=== PATIENT | female | born 1995 | race Caucasian/White ===

== ENCOUNTER → 2023-07-25 08:18 | Outpatient (REF) | payer BC, SELFPAY | LOC: WDC 08:18 | PROVIDERS: ATTENDING PHYSICIAN Obstetrics & Gynecology; FAMILY PHYSICIAN Nurse Practitioner | DX: N63.20 Unspecified lump in the left breast, unspecified quadrant (principal); N63.23 Unspecified lump in the left breast, lower outer quadrant | CPT/HCPCS: 76642 ==

== ENCOUNTER → 2024-07-16 16:11 | Outpatient (REF) | payer BC, SELFPAY ==
[2024-07-20 02:09] LABS: Chlamydia trachomatis,ThinPrep Negative (Negative); Neisseria gonorrhoeae,ThinPrep Negative (Negative); Specimen Source Cervical
== END ==
LOC: CPAP 16:11
PROVIDERS: ATTENDING PHYSICIAN Nurse Practitioner Family
DX: Z34.91 Encounter for supervision of normal pregnancy, unspecified, first trimester (principal)
CPT/HCPCS: 87491; 87591

== ENCOUNTER → 2024-07-23 13:08 | Outpatient (REF) | payer BC, SELFPAY ==
[2024-07-23 14:10] LABS: % Basophils 0.4 % (0-2); % Eosinophils 0.6 % (0-6); % Immature Granulocytes 0.3 % (0-0.5); % Lymphocytes 20.7 % (20.5-51.1); % Monocytes 7.3 % (1.7-9.3); % Neutrophils 70.7 % (42.2-75.2); Absolute Eosinophils 0.1 10^3/uL (0-0.7); Absolute Lymphocytes 1.9 10^3/uL (1.2-3.4); Absolute Monocytes 0.7 10^3/uL (0.1-0.6); Absolute Neutrophils 6.3 10^3/uL (1.4-6.5); Hematocrit 40.2 % (37.0-47.0); Hemoglobin 13.4 g/dL (12.0-16.0); Mean Corp Hgb Conc. 33.3 g/dL (33.0-37.0); Mean Corpuscular Hgb 31.2 pg (27.0-31.0); Mean Corpuscular Volume 93.5 fL (81.0-99.0); Mean Platelet Volume 10.1 fL (7.4-10.4); Nucleated Red Blood Cells % 0 %; Platelet Count 325 10^3/uL (130-400); Red Cell Dist. Width 12.4 % (11.5-14.5)
[2024-07-23 14:26] LABS: Urine Albumin Negative (Neg - Trace); Urine Bilirubin Negative (Negative); Urine Character Clear (Clear); Urine Color Yellow; Urine Glucose Negative (Negative); Urine Ketone Negative (Negative); Urine Leukocyte Negative (Negative); Urine Nitrite Negative (Negative); Urine Occult Blood Negative (Negative); Urine Specific Gravity 1.005 (<1.030); Urine Urobilinogen Negative (Neg - 1+)
[2024-07-23 18:12] LABS: Hepatitis B Surface Antigen Negative (Negative)
[2024-07-23 18:30] LABS: Hepatitis B Core Ab, Total Negative (Negative); Hepatitis B Surface Antibody Negative; Hepatitis C Antibody Negative (Negative)
[2024-07-24 10:50] LABS: Syphilis/T. pallidum Ab Reflex Negative (Negative)
[2024-07-24 12:18] LABS: HIV Combo Negative (Negative)
[2024-07-26 11:38] LABS: HDL Cholesterol 49 mg/dl; LDL Cholesterol, Calculated 112 mg/dl; Total Cholesterol 189 mg/dl (50-199); Triglyceride 141 mg/dl (10-149); Very Low Density Lipoprotein 28 mg/dl (0-30)
== END ==
LOC: REG 13:08
PROVIDERS: ATTENDING PHYSICIAN Nurse Practitioner Family; FAMILY PHYSICIAN Nurse Practitioner
DX: Z32.01 Encounter for pregnancy test, result positive (principal); Z11.3 Encounter for screening for infections with a predominantly sexual mode of transmission; Z34.90 Encounter for supervision of normal pregnancy, unspecified, unspecified trimester; Z31.430 Encounter of female for testing for genetic disease carrier status for procreative management
CPT/HCPCS: 36415; 80061; 81003; 81220; 81243; 83036; 84702; 85025; 86704; 86706; 86780; 86803; 86850; 86900; 86901; 87086; 87340; 87389

== ENCOUNTER → 2024-08-06 11:13 | Outpatient (REF) | payer BC, SELFPAY | LOC: RAD 11:13 | PROVIDERS: ATTENDING PHYSICIAN Obstetrics & Gynecology; FAMILY PHYSICIAN Nurse Practitioner | DX: O26.859 Spotting complicating pregnancy, unspecified trimester (principal) | CPT/HCPCS: 76801 ==

== ENCOUNTER → 2024-08-28 13:12 | Outpatient (REF) | payer BC, SELFPAY | LOC: PNTC 13:12 | PROVIDERS: ATTENDING PHYSICIAN Obstetrics & Gynecology | DX: Z36.0 Encounter for antenatal screening for chromosomal anomalies (principal); Z36.82 Encounter for antenatal screening for nuchal translucency | CPT/HCPCS: 36415; 76801; 76813; 81420 ==

== ENCOUNTER → 2024-09-20 14:49 | Outpatient (REF) | payer BC, SELFPAY | LOC: PNTC 14:49 | PROVIDERS: ATTENDING PHYSICIAN Obstetrics & Gynecology | DX: O99.210 Obesity complicating pregnancy, unspecified trimester (principal) | CPT/HCPCS: 76805 ==

== ENCOUNTER → 2024-10-17 12:24 | Outpatient (REF) | payer BC, SELFPAY ==
[2024-10-20 18:59] LABS: AFP Multiple of Median (MoM) 1.05; Dating LMP CONF by US; Family Neural Tube Defect Hx No; Insulin Req Maternal Diabetes No; Maternal Age at Delivery 30.4 yr; Maternal Race Nonblack; Maternal Screen Interpretation Screen Neg; Maternal Weight 194.0 lbs.; Number of Fetuses Singleton; Patient's AFP Concentration 51 ng/mL; Smoking No
== END ==
LOC: REG 12:24
PROVIDERS: ATTENDING PHYSICIAN Obstetrics & Gynecology
DX: Z34.02 Encounter for supervision of normal first pregnancy, second trimester (principal)
CPT/HCPCS: 36415; 82105

== ENCOUNTER → 2024-10-30 14:41 | Outpatient (REF) | payer BC, SELFPAY | LOC: PNTC 14:41 | PROVIDERS: ATTENDING PHYSICIAN Obstetrics & Gynecology | DX: O99.210 Obesity complicating pregnancy, unspecified trimester (principal) | CPT/HCPCS: 76811; 76817 ==

== ENCOUNTER → 2024-12-03 09:22 | Outpatient (REF) | payer BC, SELFPAY ==
[2024-12-03 11:46] LABS: Hematocrit 35.5 % (37.0-47.0); Hemoglobin 11.9 g/dL (12.0-16.0); Mean Corp Hgb Conc. 33.5 g/dL (33.0-37.0); Mean Corpuscular Volume 95.4 fL (81.0-99.0); Nucleated Red Blood Cells % 0 %; Platelet Count 262 10^3/uL (130-400); Red Cell Dist. Width 13.5 % (11.5-14.5)
[2024-12-03 12:13] LABS: 1 Hour after 50gm 139 mg/dl
[2024-12-04 12:56] LABS: Syphilis/T. pallidum Ab Reflex Negative (Negative)
== END ==
LOC: REG 09:22
PROVIDERS: ATTENDING PHYSICIAN Obstetrics & Gynecology; FAMILY PHYSICIAN Nurse Practitioner
DX: Z34.93 Encounter for supervision of normal pregnancy, unspecified, third trimester (principal)
CPT/HCPCS: 36415; 82950; 85025; 86780

== ENCOUNTER → 2024-12-07 08:36 | Outpatient (REF) | payer BC, SELFPAY ==
[2024-12-07 09:27] LABS: Glucose for Tolerance Test 90 mg/dl
[2024-12-07 11:23] LABS: Glucose for Tolerance Test 153 mg/dl
[2024-12-07 12:24] LABS: Glucose for Tolerance Test 105 mg/dl
[2024-12-07 13:43] LABS: Glucose for Tolerance Test 67 mg/dl
== END ==
LOC: REG 08:36
PROVIDERS: ATTENDING PHYSICIAN Obstetrics & Gynecology; FAMILY PHYSICIAN Nurse Practitioner
DX: Z34.90 Encounter for supervision of normal pregnancy, unspecified, unspecified trimester (principal)
CPT/HCPCS: 36415; 82951

== ENCOUNTER → 2024-12-13 14:31 | Outpatient (REF) | payer BC, SELFPAY | LOC: PNTC 14:31 | PROVIDERS: ATTENDING PHYSICIAN Obstetrics & Gynecology | DX: Z34.90 Encounter for supervision of normal pregnancy, unspecified, unspecified trimester (principal) | CPT/HCPCS: 76816 ==

== ENCOUNTER → 2025-01-01 14:03 | Outpatient (REF) | payer BC, SELFPAY ==
[2025-01-01 15:51] LABS: Hematocrit 32.6 % (37.0-47.0); Hemoglobin 10.9 g/dL (12.0-16.0); Mean Corp Hgb Conc. 33.4 g/dL (33.0-37.0); Mean Corpuscular Volume 94.8 fL (81.0-99.0); Nucleated Red Blood Cells % 0 %; Platelet Count 235 10^3/uL (130-400); Red Cell Dist. Width 13.2 % (11.5-14.5)
[2025-01-01 16:24] LABS: ALT (SGPT) 15 U/L (0-35); AST (SGOT) 19 U/L (14-36); Albumin 3.3 g/dl (3.5-5.0); Alkaline Phosphatase 81 U/L (38-126); Blood Urea Nitrogen 6 mg/dl (7-17); Calcium 8.9 mg/dl (8.4-10.2); Carbon Dioxide 24 mmol/L (22-30); Chloride 109 mmol/L (98-107); Glucose 92 mg/dl (70-99); Potassium 4.2 mmol/L (3.5-5.1); Sodium 135 mmol/L (135-145); Total Protein 6.1 g/dl (6.3-8.2); eGFR > 60.00
== END ==
LOC: PNTC 14:03
PROVIDERS: ATTENDING PHYSICIAN Obstetrics & Gynecology
DX: O36.8130 Decreased fetal movements, third trimester, not applicable or unspecified (principal)
CPT/HCPCS: 36415; 59025; 76815; 80053; 82570; 84156; 85025

== ENCOUNTER → 2025-01-08 09:48 | Outpatient (REF) | payer BC, SELFPAY ==
[2025-01-08 10:35] LABS: Hematocrit 33.4 % (37.0-47.0); Hemoglobin 11.2 g/dL (12.0-16.0); Mean Corp Hgb Conc. 33.5 g/dL (33.0-37.0); Mean Corpuscular Volume 94.1 fL (81.0-99.0); Platelet Count 238 10^3/uL (130-400); Red Cell Dist. Width 13.2 % (11.5-14.5)
[2025-01-08 10:43] LABS: Height Cm 165.10 CM
[2025-01-08 10:44] LABS: Weight Kg 93.4 KG.
[2025-01-08 11:09] LABS: ALT (SGPT) 16 U/L (0-35); AST (SGOT) 20 U/L (14-36); Albumin 3.2 g/dl (3.5-5.0); Alkaline Phosphatase 82 U/L (38-126); Blood Urea Nitrogen 4 mg/dl (7-17); Calcium 8.8 mg/dl (8.4-10.2); Carbon Dioxide 23 mmol/L (22-30); Chloride 108 mmol/L (98-107); Glucose 85 mg/dl (70-99); Potassium 4.2 mmol/L (3.5-5.1); Sodium 134 mmol/L (135-145); Total Protein 6.2 g/dl (6.3-8.2); eGFR > 60.00
[2025-01-08 11:09] LABS: 24 Hour Urine Total Volume 1150 ml
[2025-01-08 11:21] LABS: Creat Clear Result 133.3 ml/min (61-166)
== END ==
LOC: REG 09:48
PROVIDERS: ATTENDING PHYSICIAN Obstetrics & Gynecology; FAMILY PHYSICIAN Nurse Practitioner
DX: Z34.82 Encounter for supervision of other normal pregnancy, second trimester (principal)
CPT/HCPCS: 36415; 80053; 81050; 82575; 84156; 85027

== ENCOUNTER → 2025-01-17 15:21 | Outpatient (REF) | payer BC, SELFPAY ==
[2025-01-17 16:28] LABS: Hematocrit 32.0 % (37.0-47.0); Hemoglobin 11.0 g/dL (12.0-16.0); Mean Corp Hgb Conc. 34.4 g/dL (33.0-37.0); Mean Corpuscular Volume 93.6 fL (81.0-99.0); Nucleated Red Blood Cells % 0 %; Platelet Count 243 10^3/uL (130-400); Red Cell Dist. Width 13.2 % (11.5-14.5)
[2025-01-17 16:29] LABS: ALT (SGPT) 15 U/L (0-35); AST (SGOT) 21 U/L (14-36); Albumin 3.2 g/dl (3.5-5.0); Alkaline Phosphatase 95 U/L (38-126); Blood Urea Nitrogen 9 mg/dl (7-17); Calcium 8.5 mg/dl (8.4-10.2); Carbon Dioxide 23 mmol/L (22-30); Chloride 106 mmol/L (98-107); Glucose 96 mg/dl (70-99); Potassium 3.9 mmol/L (3.5-5.1); Sodium 133 mmol/L (135-145); Total Protein 6.2 g/dl (6.3-8.2); eGFR > 60.00
== END ==
LOC: PNTC 15:21
PROVIDERS: Student in an Organized Health Care Education/Training Program; ATTENDING PHYSICIAN Obstetrics & Gynecology
DX: Z34.90 Encounter for supervision of normal pregnancy, unspecified, unspecified trimester (principal)
CPT/HCPCS: 36415; 59025; 80053; 82570; 84156; 85025

== ENCOUNTER 2025-01-22 15:02 | Observation (INO) | payer BC, SELFPAY ==
[2025-01-22 15:18] VITALS: BP 137/83; BMI 36.3
[2025-01-22 16:20] LABS: Hematocrit 34.6 % (37.0-47.0); Hemoglobin 11.6 g/dL (12.0-16.0); Mean Corp Hgb Conc. 33.5 g/dL (33.0-37.0); Mean Corpuscular Volume 94.0 fL (81.0-99.0); Nucleated Red Blood Cells % 0 %; Platelet Count 223 10^3/uL (130-400); Red Cell Dist. Width 13.5 % (11.5-14.5)
[2025-01-22 16:30] LABS: Urine Character Clear (Clear)
[2025-01-22] MEDS: LR 1000 IV (16:37)
[2025-01-22 16:47] LABS: ALT (SGPT) 15 U/L (0-35); AST (SGOT) 24 U/L (14-36); Albumin 3.8 g/dl (3.5-5.0); Alkaline Phosphatase 106 U/L (38-126); Blood Urea Nitrogen 8 mg/dl (7-17); Calcium 9.4 mg/dl (8.4-10.2); Carbon Dioxide 22 mmol/L (22-30); Chloride 103 mmol/L (98-107); Estimated Creatinine Clearance > 125 ml/min; Glucose 76 mg/dl (70-99); Potassium 3.8 mmol/L (3.5-5.1); Sodium 133 mmol/L (135-145); Total Protein 7.0 g/dl (6.3-8.2); eGFR > 60.00
[2025-01-22] MEDS: CELESTONE SOLUSPAN 2 MG IM (18:59)
[2025-01-22] MEDS: ZYRTEC 10 MG PO (22:02)
--- NOTE | 2025-01-23 02:52 | DOWNTIME ---
There was a [employer] Downtime on 01/23/2025 from 0100 to 01/23/2025 at 0215. Downtime documentation of patient's care, including medication administrations, has been reconciled in the electronic record per guidelines. Refer to the
patient's paper chart under the miscellaneous tab to see printed paper medication records and downtime forms.
[2025-01-23] MEDS: PRENATAL PLUS 1 TABLET PO (07:58)
== END 2025-01-23 10:46 | disposition home or self-care (01) ==
LOC: LDRP 15:02
PROVIDERS: ADMITTING PHYSICIAN Obstetrics & Gynecology
DX: O14.03 Mild to moderate pre-eclampsia, third trimester (principal); Z3A.33 33 weeks gestation of pregnancy
CPT/HCPCS: 59025; 80053; 81003; 82570; 82731; 84156; 85025; 86762; 86850; 86900; 86901; 87070; G0378

== ENCOUNTER 2025-01-23 20:10 | Observation (INO) | payer BC, SELFPAY ==
[2025-01-23 20:16] VITALS: BP 124/76; BMI 36.3
[2025-01-23] MEDS: CELESTONE SOLUSPAN 2 MG IM (21:17)
== END 2025-01-23 21:23 | disposition home or self-care (01) ==
LOC: LDRP 20:10
PROVIDERS: ADMITTING PHYSICIAN Obstetrics & Gynecology; FAMILY PHYSICIAN Student in an Organized Health Care Education/Training Program
DX: O14.03 Mild to moderate pre-eclampsia, third trimester (principal); Z3A.33 33 weeks gestation of pregnancy
CPT/HCPCS: 59025; G0378

== ENCOUNTER → 2025-01-24 07:13 | Outpatient (REF) | payer BC, SELFPAY | LOC: PNTC 07:13 | PROVIDERS: ATTENDING PHYSICIAN Obstetrics & Gynecology | DX: O09.529 Supervision of elderly multigravida, unspecified trimester (principal); O13.9 Gestational [pregnancy-induced] hypertension without significant proteinuria, unspecified trimester | CPT/HCPCS: 59025; 76815 ==

== ENCOUNTER → 2025-01-30 09:40 | Outpatient (REF) | payer BC, SELFPAY ==
[2025-01-30 10:38] LABS: Hematocrit 37.0 % (37.0-47.0); Hemoglobin 11.9 g/dL (12.0-16.0); Mean Corp Hgb Conc. 32.2 g/dL (33.0-37.0); Mean Corpuscular Volume 93.9 fL (81.0-99.0); Nucleated Red Blood Cells % 0 %; Platelet Count 260 10^3/uL (130-400); Red Cell Dist. Width 13.5 % (11.5-14.5)
[2025-01-30 10:57] LABS: ALT (SGPT) 15 U/L (0-35); AST (SGOT) 19 U/L (14-36); Albumin 3.5 g/dl (3.5-5.0); Alkaline Phosphatase 104 U/L (38-126); Blood Urea Nitrogen 10 mg/dl (7-17); Calcium 9.5 mg/dl (8.4-10.2); Carbon Dioxide 25 mmol/L (22-30); Chloride 102 mmol/L (98-107); Glucose 113 mg/dl (70-99); Potassium 4.6 mmol/L (3.5-5.1); Sodium 132 mmol/L (135-145); Total Protein 6.7 g/dl (6.3-8.2); Uric Acid 5.0 mg/dl (2.5-6.2); eGFR > 60.00
[2025-01-30 11:14] LABS: Urine Character Slightly Cloudy (Clear)
[2025-01-30 12:18] LABS: Urine Red Blood Cell 0-2 /HPF (0-2); Urine Squamous Cell >30 /LPF (Few)
== END ==
LOC: REG 09:40
PROVIDERS: ATTENDING PHYSICIAN Obstetrics & Gynecology; FAMILY PHYSICIAN Nurse Practitioner
DX: Z34.03 Encounter for supervision of normal first pregnancy, third trimester (principal)
CPT/HCPCS: 36415; 80053; 81003; 81015; 82570; 84156; 84550; 85025

== ENCOUNTER → 2025-01-31 08:24 | Outpatient (REF) | payer BC, SELFPAY | LOC: PNTC 08:24 | PROVIDERS: ATTENDING PHYSICIAN Obstetrics & Gynecology | DX: O99.210 Obesity complicating pregnancy, unspecified trimester (principal); O13.9 Gestational [pregnancy-induced] hypertension without significant proteinuria, unspecified trimester | CPT/HCPCS: 59025; 76818 ==

== ENCOUNTER → 2025-02-05 07:08 | Outpatient (REF) | payer BC, SELFPAY ==
[2025-02-05 08:39] LABS: Hematocrit 34.5 % (37.0-47.0); Hemoglobin 11.7 g/dL (12.0-16.0); Mean Corp Hgb Conc. 33.9 g/dL (33.0-37.0); Mean Corpuscular Volume 94.5 fL (81.0-99.0); Nucleated Red Blood Cells % 0 %; Platelet Count 205 10^3/uL (130-400); Red Cell Dist. Width 13.4 % (11.5-14.5)
[2025-02-05 08:44] LABS: Urine Character Clear (Clear)
[2025-02-05 09:07] LABS: Urine Urothelial Cell 0-2 /LPF (FEW)
[2025-02-05 09:08] LABS: Urine Red Blood Cell 0-2 /HPF (0-2)
[2025-02-05 09:20] LABS: ALT (SGPT) 14 U/L (0-35); AST (SGOT) 19 U/L (14-36); Albumin 3.2 g/dl (3.5-5.0); Alkaline Phosphatase 113 U/L (38-126); Blood Urea Nitrogen 8 mg/dl (7-17); Calcium 9.2 mg/dl (8.4-10.2); Carbon Dioxide 24 mmol/L (22-30); Chloride 105 mmol/L (98-107); Glucose 83 mg/dl (70-99); Potassium 4.4 mmol/L (3.5-5.1); Sodium 133 mmol/L (135-145); Total Protein 6.2 g/dl (6.3-8.2); Uric Acid 5.6 mg/dl (2.5-6.2); eGFR > 60.00
== END ==
LOC: REG 07:08
PROVIDERS: ATTENDING PHYSICIAN Obstetrics & Gynecology
DX: O14.93 Unspecified pre-eclampsia, third trimester (principal); Z34.03 Encounter for supervision of normal first pregnancy, third trimester
CPT/HCPCS: 36415; 80053; 81003; 81015; 82570; 84156; 84550; 85025

== ENCOUNTER → 2025-02-07 14:51 | Outpatient (REF) | payer BC, SELFPAY | LOC: PNTC 14:51 | PROVIDERS: ATTENDING PHYSICIAN Obstetrics & Gynecology | DX: O99.213 Obesity complicating pregnancy, third trimester (principal); O14.03 Mild to moderate pre-eclampsia, third trimester | CPT/HCPCS: 59025; 76816 ==

== ENCOUNTER 2025-02-10 08:27 | Observation (INO) | payer BC, SELFPAY ==
[2025-02-10 08:36] VITALS: BMI 36.3
[2025-02-10 08:37] VITALS: BP 139/86
[2025-02-10] MEDS: REGLAN 10 MG IV (09:09)
[2025-02-10] MEDS: BENADRYL 25 MG IV (09:12)
[2025-02-10 09:14] LABS: Hematocrit 34.6 % (37.0-47.0); Hemoglobin 11.7 g/dL (12.0-16.0); Mean Corp Hgb Conc. 33.8 g/dL (33.0-37.0); Mean Corpuscular Volume 91.5 fL (81.0-99.0); Platelet Count 162 10^3/uL (130-400); Red Cell Dist. Width 13.5 % (11.5-14.5)
[2025-02-10] MEDS: MAGNESIUM SULFATE 50 IV (09:14)
[2025-02-10] MEDS: LR 500 IV (09:14)
[2025-02-10 09:29] LABS: ALT (SGPT) 14 U/L (0-35); AST (SGOT) 21 U/L (14-36); Albumin 3.0 g/dl (3.5-5.0); Alkaline Phosphatase 108 U/L (38-126); Blood Urea Nitrogen 9 mg/dl (7-17); Calcium 8.7 mg/dl (8.4-10.2); Carbon Dioxide 20 mmol/L (22-30); Chloride 108 mmol/L (98-107); Estimated Creatinine Clearance > 125 ml/min; Glucose 104 mg/dl (70-99); Potassium 3.8 mmol/L (3.5-5.1); Sodium 133 mmol/L (135-145); Total Protein 5.8 g/dl (6.3-8.2); eGFR > 60.00
== END 2025-02-10 10:44 | disposition home or self-care (01) ==
LOC: LDRP 08:27
PROVIDERS: ADMITTING PHYSICIAN Obstetrics & Gynecology
DX: O14.03 Mild to moderate pre-eclampsia, third trimester (principal); Z3A.36 36 weeks gestation of pregnancy; R51.9 Headache, unspecified; Z80.0 Family history of malignant neoplasm of digestive organs
CPT/HCPCS: 80053; 82570; 84156; 85027; 86850; 86900; 86901; G0378

== ENCOUNTER → 2025-02-14 15:54 | Outpatient (REF) | payer BC, SELFPAY | LOC: PNTC 15:54 | PROVIDERS: ATTENDING PHYSICIAN Obstetrics & Gynecology | DX: O99.213 Obesity complicating pregnancy, third trimester (principal); O14.03 Mild to moderate pre-eclampsia, third trimester | CPT/HCPCS: 59025; 76815 ==

== ENCOUNTER 2025-02-14 19:33 | Inpatient (IN) | payer BC, SELFPAY ==
[2025-02-14 20:11] VITALS: BP 142/78; BMI 37.4
[2025-02-14 20:51] LABS: Hematocrit 29.9 % (37.0-47.0); Hemoglobin 10.2 g/dL (12.0-16.0); Mean Corp Hgb Conc. 34.1 g/dL (33.0-37.0); Mean Corpuscular Volume 91.4 fL (81.0-99.0); Nucleated Red Blood Cells % 0 %; Platelet Count 135 10^3/uL (130-400); Red Cell Dist. Width 13.8 % (11.5-14.5)
[2025-02-14 21:04] LABS: ALT (SGPT) 15 U/L (0-35); AST (SGOT) 24 U/L (14-36); Albumin 2.9 g/dl (3.5-5.0); Alkaline Phosphatase 103 U/L (38-126); Blood Urea Nitrogen 11 mg/dl (7-17); Calcium 8.5 mg/dl (8.4-10.2); Carbon Dioxide 22 mmol/L (22-30); Chloride 108 mmol/L (98-107); Estimated Creatinine Clearance > 125 ml/min; Glucose 89 mg/dl (70-99); Potassium 3.9 mmol/L (3.5-5.1); Sodium 132 mmol/L (135-145); Total Protein 5.5 g/dl (6.3-8.2); eGFR > 60.00
[2025-02-14 21:05] LABS: Urine Character Clear (Clear)
[2025-02-14] MEDS: CYTOTEC 25 MICROGRAM VAG (21:22)
[2025-02-14 21:45] LABS: Urine Red Blood Cell 0-2 /HPF (0-2); Urine White Cell 0-2 /HPF (0-5)
[2025-02-15] MEDS: LR 1000 IV ×4 (01:11→17:30)
[2025-02-15] MEDS: PITOCIN 30 UNITS/NSS 500 ML IV ×2 (10:20→23:45)
[2025-02-15] MEDS: FENTANYL/BUPIVACAINE 100 EPIDURAL ×2 (14:00→21:57)
[2025-02-15] MEDS: SUBLIMAZE 100 MCG EPIDURAL (14:00)
[2025-02-15] MEDS: ZOFRAN 4 MG IV (14:56)
[2025-02-16] MEDS: TRANEXAMIC ACID 100 IV (00:45)
[2025-02-16] MEDS: HEMABATE 250 MCG IM ×2 (00:48→01:48)
[2025-02-16] MEDS: CYTOTEC 800 MCG SL (01:11)
[2025-02-16] MEDS: PITOCIN 30 UNITS/NSS 500 ML IV (01:15)
[2025-02-16 01:29] LABS: APTT 26.0 Sec (23.4-35.0); Fibrinogen 530 MG/DL (199-459); INR 1.06; PT 14.1 Sec (11.4-14.6)
[2025-02-16 01:30] LABS: Hematocrit 29.6 % (37.0-47.0); Hemoglobin 9.8 g/dL (12.0-16.0); Mean Corp Hgb Conc. 33.1 g/dL (33.0-37.0); Mean Corpuscular Volume 94.3 fL (81.0-99.0); Nucleated Red Blood Cells % 0 %; Platelet Count 163 10^3/uL (130-400); Red Cell Dist. Width 14.5 % (11.5-14.5)
[2025-02-16] MEDS: STADOL 1 MG IV (01:30)
[2025-02-16] MEDS: ANCEF 10 IV (02:17)
[2025-02-16] MEDS: LR 1000 IV (02:38)
[2025-02-16] MEDS: ZOFRAN 4 MG IV (03:25)
[2025-02-16] MEDS: TYLENOL 650 MG PO (04:09)
[2025-02-16 06:39] LABS: Hematocrit 25.2 % (37.0-47.0); Hemoglobin 8.7 g/dL (12.0-16.0); Mean Corp Hgb Conc. 34.5 g/dL (33.0-37.0); Mean Corpuscular Volume 93.7 fL (81.0-99.0); Platelet Count 148 10^3/uL (130-400); Red Cell Dist. Width 14.2 % (11.5-14.5)
[2025-02-16] MEDS: COLACE 100 MG PO ×2 (08:45→20:32)
[2025-02-16] MEDS: PRENATAL PLUS 1 TABLET PO (08:45)
[2025-02-16] MEDS: MOTRIN 600 MG PO (16:40)
[2025-02-16] MEDS: CLARITIN 10 MG PO (20:32)
[2025-02-17] MEDS: MOTRIN 600 MG PO ×2 (00:06→08:35)
[2025-02-17 05:53] LABS: Hematocrit 22.5 % (37.0-47.0); Hemoglobin 7.7 g/dL (12.0-16.0)
[2025-02-17] MEDS: FEOSOL 325 MG PO (08:35)
[2025-02-17] MEDS: COLACE 100 MG PO (08:35)
[2025-02-17] MEDS: PRENATAL PLUS 1 TABLET PO (08:35)
[2025-02-19 13:10] LABS: Syphilis/T. pallidum Ab Reflex Negative (Negative)
== END 2025-02-17 13:00 | disposition home or self-care (01) | DRG 768 ==
LOC: LDRP 19:33
PROVIDERS: Obstetrics & Gynecology; ADMITTING PHYSICIAN Obstetrics & Gynecology
PROC: 3E033VJ Introduction of Other Hormone into Peripheral Vein, Percutaneous Approach (ICD-10-PCS; 2025-02-14)
PROC: 0U7C7DJ Dilation of Cervix with Intraluminal Device, Temporary, Via Natural or Artificial Opening (ICD-10-PCS; 2025-02-14)
PROC: 3E0P7VZ Introduction of Hormone into Female Reproductive, Via Natural or Artificial Opening (ICD-10-PCS; 2025-02-14)
PROC: 10E0XZZ Delivery of Products of Conception, External Approach (ICD-10-PCS; 2025-02-16)
PROC: 0W3R7ZZ Control Bleeding in Genitourinary Tract, Via Natural or Artificial Opening (ICD-10-PCS; 2025-02-16)
PROC: 0KQM0ZZ Repair Perineum Muscle, Open Approach (ICD-10-PCS; 2025-02-16)
DX: O14.04 Mild to moderate pre-eclampsia, complicating childbirth (principal); Z37.0 Single live birth; O69.81X0 Labor and delivery complicated by cord around neck, without compression, not applicable or unspecified; O70.1 Second degree perineal laceration during delivery; O72.1 Other immediate postpartum hemorrhage; Z3A.37 37 weeks gestation of pregnancy
CPT/HCPCS: 59025; 80053; 81003; 81015; 82570; 84156; 85014; 85018; 85025; 85027; 85384; 85610; 85730; 86780; 86850; 86900; 86901; 88307